=== PATIENT | male | born 1945 | race Caucasian/White ===

== ENCOUNTER → 2021-10-10 10:02 | Outpatient (BNVA) | payer MEDICARE, SELFPAY | PROVIDERS: PCP Neuromusculoskeletal Medicine & OMM; Referring Provider Neuromusculoskeletal Medicine & OMM; Visit Provider Student in an Organized Health Care Education/Training Program | DX: M17.11 Unilateral primary osteoarthritis, right knee (principal) | CPT/HCPCS: 99203 ==

== ENCOUNTER 2021-11-10 14:42 | Outpatient (CLI) | payer MEDICARE, SELFPAY ==
--- NOTE | 2021-11-10 14:00 | DI.RAD_ITS ---
Exam(s) XR STANDING ALIGNMENT EXAM: XR STANDING ALIGNMENT CLINICAL HISTORY: TKA planning. TECHNIQUE: 2D digital imaging was performed. Standing AP views were performed from the pelvis throu gh the ankles. COMPARISON: CR XR KNEE 3V RT from 07/29/2021 FINDINGS: BONES: No acute fracture is present. No bony destructive lesion is seen. Leg length discrepancy: Left iliac crest projects superior to the right. JOINTS: Knees: Left knee prosthesis. Narrowing of both medial and lateral femoral tibial joint spac es of the right knee. The ankle joints are unremarkable. There is a right hip prosthesis. There are moderate degenerative changes of the left hip.. SOFT TISSUE: Normal. IMPRESSION: Degenerative changes of the right knee and left hip.. Mild leg length discrepancy. DATA REPOSITORY: RADIATION DOSE DELIVERED:
== END 2021-11-10 14:43 | disposition home or self-care (01) ==
LOC: DIORS 14:42
PROVIDERS: PCP Neuromusculoskeletal Medicine & OMM; Referring Provider Neuromusculoskeletal Medicine & OMM; Visit Provider Physician Assistant
DX: M17.11 Unilateral primary osteoarthritis, right knee (principal); Z01.818 Encounter for other preprocedural examination
CPT/HCPCS: 77073

== ENCOUNTER 2021-11-24 02:49 | Outpatient (CLI) | payer MEDICARE, SELFPAY ==
[2021-11-24 14:22] LABS: HGB 15.2 g/dL (13.5-17.5); MCH 30.8 pg (27.0-33.0); MCHC 34.5 % (32.0-36.0); MCV 89 fL (80-95); MPV 8.9 fL (8.0-11.0); Platelet Count 219 10^3/uL (130-400); RBC 4.93 10^6/uL (4.36-5.78); RDW 12.4 % (11.8-14.1); RDW-SD 40.5 fL
[2021-11-24 15:19] LABS: BUN 26 mg/dL (7-18); CREATININE 1.1 mg/dL (0.70-1.30); Calcium 9.8 mg/dL (8.5-10.1); Chloride 103 mmol/L (98-107); Estimated GFR 69.57 (mL/min/1.73m2); Glucose 114 mg/dL (74-106); Sodium 139 mmol/L (136-145)
== END 2021-11-24 02:50 | disposition home or self-care (01) ==
LOC: LBO 02:49
PROVIDERS: PCP Neuromusculoskeletal Medicine & OMM; Visit Provider Student in an Organized Health Care Education/Training Program
DX: M25.561 Pain in right knee (principal); M17.11 Unilateral primary osteoarthritis, right knee; Z01.818 Encounter for other preprocedural examination; Z01.812 Encounter for preprocedural laboratory examination
CPT/HCPCS: 36415; 80048; 85027

== ENCOUNTER 2021-11-26 07:13 | Day surgery (SDC) | payer MEDICARE, SELFPAY ==
[2021-11-26] VITALS (12 sets, daily range): BP systolic 83–130; BP diastolic 40–81; PULSE 59–75; RESP 13–20; TEMP 36.2–37.2; O2SAT 94–98; BMI 25.8
--- NOTE | 2021-11-26 07:26 | ANES.PREOP_ITS ---
General Info Date of Service Date Performed: 11/26/21 Height: 5 ft 10 in Weight: 81.647 kg Body Mass Index (BMI): 25.8 Surgical Procedure: Operation Date: 11/26/21 09:25 Proposed Procedure Side Surgeon p Knee Total Arthroplasty Cemented CR Right Yvon Jimenez MD Meds Allergies and Home Medications Allergies Allergy/AdvReac Type Severity Reaction Status Date / Time acetaminophen [From Percocet] AdvReac Nausea Unverified 11/26/21 07:49 oxycodone [From Percocet] AdvReac Nausea Unverified 11/26/21 07:49 Home Medication Medication Instructions Recorded acetaminophen 500 mg capsule 1,000 mg PO Q8H PRN PRN #90 caps 11/26/21 aspirin 81 mg tablet,delayed 81 mg PO BID #60 tabs 11/26/21 release celecoxib 200 mg capsule (Celebrex) 200 mg PO BID #60 caps 11/26/21 dexamethasone 4 mg tablet 4 mg PO DAILY #2 tabs 11/26/21 (Decadron) gabapentin 300 mg capsule 300 mg PO QHS #14 caps 11/26/21 hydromorphone 2 mg tablet 2 mg PO Q6H PRN #10 tabs 11/26/21 pantoprazole 40 mg tablet,delayed 40 mg PO DAILY #30 tabs 11/26/21 release (Protonix) Current Visit Medications: Current Medications Generic Name Dose Route Start Last Admin Trade Name Freq PRN Reason Stop Dose Admin Acetaminophen 1,000 mg 11/26/21 06:00 Acetaminophen 500 Mg Tab PO 11/26/21 16:00 PREOP FLAKO Celecoxib 400 mg 11/26/21 06:00 Celecoxib 200 Mg Cap PO 11/26/21 16:00 PREOP FLAKO Gabapentin 300 mg 11/26/21 06:00 Gabapentin 300 Mg Cap PO 11/26/21 16:00 PREOP FLAKO Tranexamic Acid 1,000 mg/ 60 mls @ 360 mls/hr 11/26/21 06:00 Sodium Chloride IVPB 11/26/21 16:00 PREOP FLAKO Ringer's Solution 1,000 mls @ 80 mls/hr 11/26/21 06:00 IV 12/25/21 23:59 INFUSION FLAKO Cefazolin Sodium/Dextrose 2 gm in 50 mls @ 100 mls/hr 11/26/21 06:00 Ancef Duplex IVPB 12/25/21 23:59 PREOP FLAKO IV Miscellaneous Supplies 1 each 11/26/21 06:00 Iv Access IV 12/25/21 23:59 DIRECTED FLAKO Sodium Chloride 0 ml 11/26/21 06:00 Normal Saline Flush 10 Ml Syr IV 12/25/21 23:59 PRN PRN Sodium Chloride 0 ml 11/26/21 06:00 Normal Saline 10 Ml Vial IJ 12/25/21 23:59 DIRECTED PRN Sterile Water 0 ml 11/26/21 06:00 Water,Injection,Sterile 10 Ml Vial IJ 12/25/21 23:59 DIRECTED PRN PFSH Active Problems Active Problems: Problem Status Onset Code 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 states no residual, never hadto f.u with neurology Former smoker Hyperlipidemia Surgical History Surgical History History of colonoscopy 06/29/16 History of inguinal hernia repair [place] [facility] [facility] [place] History of total right hip replacement [facility] ~15 years ago Tobacco Smoking/Tobacco Use Status: Never Alcohol Alcohol Intake: current Alcohol intake frequency: holidays/special occasions only Substance Use Substance use: Occasionally Substance use type: marijuana Vital Signs and Lab Results Lab Results Blood Type / Crossmatch: No Data to Display Complete Blood Count: White Blood Count 8.80 10^3/uL (4.4-10.8) 11/24/21 14:16 Red Blood Count 4.93 10^6/uL (4.36-5.78) 11/24/21 14:16 Hemoglobin 15.2 g/dL (13.5-17.5) 11/24/21 14:16 Hematocrit 44.0 % (40.0-50.0) 11/24/21 14:16 Platelet Count 219 10^3/uL (130-400) 11/24/21 14:16 Complete Metabolic Panel: Sodium 139 mmol/L (136-145) 11/24/21 14:16 Potassium 4.0 mmol/L (3.5-5.1) 11/24/21 14:16 Chloride 103 mmol/L (98-107) 11/24/21 14:16 Carbon Dioxide 29.0 mmol/L (21.0-32.0) 11/24/21 14:16 BUN 26 mg/dL (7-18) H 11/24/21 14:16 Creatinine 1.1 mg/dL (0.70-1.30) 11/24/21 14:16 Est GFR (CKD-EPI 2020) 69.57 (mL/min/1.73m2) 11/24/21 14:16 Calcium 9.8 mg/dL (8.5-10.1) 11/24/21 14:16 Glucose 114 mg/dL (74-106) H 11/24/21 14:16 Liver Function Panel: No Data to Display Coagulation Panel: No Data to Display Cardiac Panel: No Data to Display Arterial Blood Gas: No Data to Display Venous Blood Gas: No Data to Display Pancreas Panel: No Data to Display Thyroid Panel: No Data to Display Infectious Disease: No Data to Display Blood Cultures: No Data to Display Toxicology Panel: No Data to Display Anesthesia Assessment and Plan Anesthesia History Personal History: No History of Anesthesia Complications Family History: No Family History of Anesthesia Complications Exercise Tolerance Exercise Tolerance: Metabolic Equivalents>4 Pertinent Negatives Pertinent Negatives: No Symptoms of GERD, No Major Cardiovascular Symptoms or Complaints, No Major Pulmonary Symptoms or Complaints and No History of CVA/TIA Cardiac & Pulmonary Exam Cardiac Exam: Normal S1/S2 Heart Sounds Pulmonary Exam: Clear Bilateral Breath Sounds Implantable Cardiac Device Does patient have a Pacemaker or an ICD?: No Airway Exam Known Difficult Airway: No Mallampati Class: 2 Mouth Opening: Normal (> 3cm) Thyromental Distance: Greater than 3 cm Neck Range of Motion: Full ROM Neck Circumference: Normal Teeth Condition: Generalized Poor Dentition ASA Classification ASA Score: ASA 3 Emergency Case?: No NPO Status NPO Status: NPO Clears >2 hours, Solids >8 hours Anesthesia Plan Resuscitation Status: Full Code Anesthesia Technique: Spinal Anesthesia Airway Planned: Natural Airway Pain Management: Surgeon and patient request nerve block (Right adductor canal) Monitors Used: Standard Monitors
--- NOTE | 2021-11-26 07:35 | PDOC.DSDIS_ITS ---
Discharge Plan Disposition Patient Disposition: HOME Condition: Good Discharge Details Reason For Visit: Right TKA Attending Provider: Yvon Jimenez Primary Care Provider: Tommie Kuhn [place] Meds and New Rx's Prescriptions: New celecoxib [Celebrex] 200 mg capsule 200 mg PO BID Qty: 60 0RF aspirin 81 mg tablet,delayed release (DR/EC) 81 mg PO BID Qty: 60 0RF pantoprazole [Protonix] 40 mg tablet,delayed release (DR/EC) 40 mg PO DAILY Qty: 30 0RF gabapentin 300 mg capsule 300 mg PO QHS Qty: 14 0RF acetaminophen 500 mg capsule 1,000 mg PO Q8H PRN PRNQty: 90 0RF dexamethasone [Decadron] 4 mg tablet 4 mg PO DAILY Qty: 2 0RF hydromorphone 2 mg tablet 2 mg PO Q6H PRNQty: 10 0RF Discharge Instructions Additional Instructions: Total Knee Discharge Instructions Activity: The most important activity is to walk and to work on gentle motion (both flexion and extension). You should try to take short walks a few times a day. It is important that when resting you work on keeping the knee straight. Avoid putting a pillow behind the knee as this will encourage flexion. Work on range of motion exercises as provided by Physical Therapy. - Start outpatient physical therapy within 2 weeks. - You should wear the ANKIT hose on both legs for 2 weeks. You may remove these at night. You may also use any compression sock in place of the ANKIT hose. - Utilize [employer] to review exercises, see videos on exercises and obtain basic information pertaining to your surgery and your recovery. Dressing: Remove the Daniel wrap by 2 days after your surgery and put on the ANKIT stocking given to you from the hospital. Keep the surgical dressing (underneath the DANIEL wrap) in place for at least one week. After the first week it may be removed and replaced with light gauze and tape or nothing. The wound and dressing may get wet after 3 days but avoid soaking the dressing or otherwise it will need to be changed. Many people prefer covering the dressing with cling wrap (saran wrap) to minimize it from getting soaked. If it gets wet, just pat dry. If it starts to peel off then it will need to be changed. Medications: - You should take Tylenol and anti-inflammatory Celebrex as your primary pain control medications. If the Celebrex is too expensive or not covered, please call the office for another alternative (Advil/Ibuprofen or Naproxen/Aleve) - You have been prescribed a stronger pain medication Oxycodone for breakthrough pain, take as needed as prescribed. - You have also been prescribed a stomach acid reduction agent Pantoprozole to help reduce stomach acid and reflux. - You have been prescribed Gabapentin to take at night for restlessness and nerve pain. - You will be taking Aspirin 81mg twice a day for DVT prevention unless instructed otherwise. - You have also been prescribed Decadron to take to control post-operative nausea and pain. You will start this tomorrow. - If you have constipation you should take Colace or Miralax (both [id number]). It takes most people 3-4 days to have a bowel movement. Follow-up: 2 weeks If you have any acute concerns or questions, please do not hesitate to contact the office at [phone]. You may contact Dr. Jimenez with any questions after hours through the hospital at [phone] or on his cell phone at [phone]. Referrals: Yvon Jimenez MD [ [facility] STAFF PHYSICIAN] - Equipment/Supplies: Walker Activity:: Activity as Tolerated Remove Dressings/Wound Care:: Do Not Remove Shower/Bathe:: 72 hours Diet:: As Tolerated Discharge Orders Discharge Orders: Discharge Order (Routine); Ordered 11/26/21 Ordered By: Maryse Chavez DS: Diagnosis Discharge Diagnosis (1) Degenerative joint disease of right knee: Status: Acute
[2021-11-26] MEDS: Celecoxib 200 MG CAP 400 MG PO (08:01)
[2021-11-26] MEDS: Acetaminophen 500 MG TAB 1000 MG PO (08:01)
[2021-11-26] MEDS: Gabapentin 300 MG CAP PO (08:01)
[2021-11-26] MEDS: Lactated Ringers 1,000 ML 80 ML IV (08:21)
--- NOTE | 2021-11-26 08:59 | W.ANESNERVE ---
Nerve Block Single Injection Procedure Date and Time Date Performed: 11/26/21 Procedure Start: 08:45 Location Where Procedure Performed Procedure Location: Day Surgery Unit Reason Performed: Postoperative Analgesia Requesting Provider: Yvon Jimenez Timeout Performed Timeout Performed: Yes Monitoring Used ECG, Blood Pressure and SpO2 Sterility Sterility: Hand Hygiene Sedation Given During Procedure Sedation Given (Indicate Dose Given): No Sedation given Patient Mental Status Patient Mental Status: Awake Nerve Block 1st Nerve Block: Laterality: Right Block Type: Adductor Canal Needle / Catheter Used: 100mm SonoPlex II Local Anesthetic Bolus (Indicate Dose Given): Lidocaine used for local infiltration of skin, Injected in 3-5ml increments after negative blood aspiration and Bupivacaine 0.25% Dose:: 15 ml Additives (Indicate Dose Given): Precedex Dose:: 80 mcg Ultrasound: Sterile probe cover and gel used Ultrasound Image Saved?: Yes Nerve Stimulator: Not Used Paresthesia: None Post Procedure Pain score (0-10): 0 Procedure Tolerated: No Complications and Patient tolerated well Procedure Outcome: Successful Performed By: Kings Kerr
[2021-11-26] MEDS: ceFAZolin 2 GM/50 ML BAG IVPB (09:10)
[2021-11-26] MEDS: ePHEDrine 25 MG/5 ML Syringe IVP (11:40)
--- NOTE | 2021-11-26 12:37 | W.ANESPOSTOP ---
Postoperative Evaluation Date, Time and Location Date Performed: 11/26/21 Time Performed: 11:45 Patient Location: PACU Vital Signs Most Recent Imported Vital Signs: Most Recent Vital Signs Temp Pulse Resp BP Pulse Ox 36.3 C L 68 16 98/63 L 95 11/26/21 12:06 11/26/21 12:06 11/26/21 12:06 11/26/21 12:06 11/26/21 12:06 Pain Score Most Recent Pain Score: Most Recent Pain Score Pain Level 0 11/26/21 12:06 Assessment Mental Status: Awake (Alert & Oriented to Patient Baseline) Airway and Respiratory Function: Patent airway with normal (patient baseline) respiratory exam Cardiovascular Function: Hemodynamically Stable Hydration Status: Adequately Hydrated Nausea & Vomiting: No Nausea or Vomiting Pain: Pt. Denies Any Pain Peripheral Nerve Block: Regional nerve block not resolved at time of post operative discharge Postoperative Comments:: Spinal wearing off appropriately. Patient doing well and denies questions.
--- NOTE | 2021-11-26 13:55 | PT.INIE ---
Date of service: 11/26/21 PT Notes Visit Reasons: Right TKA Physical Therapy Day Surgery Initial Evaluation Date: 11/26/2021 Referring Doctor: MARCE Carbone PT Orders: PT CONSULT: S/P Ortho Surgery Precautions: WBAT on R LE with AD. Patient Profile/Admitting Diagnosis: Patient is a 76-year-old male with degenerative joint disease of the R knee and is S/P R total knee arthroplasty on postoperative day 0. PMHX: Medical History?(Updated 10/10/21 @ 13:12 by Christiane Jain) Cardioembolic stroke CVA (cerebral vascular accident) Former smoker Hyperlipidemia Surgical History?(Updated 10/10/21 @ 13:12 by Christiane Jain) History of colonoscopy 06/29/16 History of inguinal hernia repair History of knee replacement [place] [facility] [place] ago History of total right hip replacement [facility] ~15 years ago Social History/Home Situation: Patient lives alone with in a private home with three steps to enter with B rails. Independent with all aspects of ADLs prior to surgery. Equipment Owned/DME: None Subjective: Agreeable to PT consult. Reports 2/10 pain in R knee. Objective: General Observation: Supine in bed. QUIN wrap to R LE. Cryocuff to R knee. Mental Status: A and O x 4 Pain: 2/10 in R knee and anterior thigh ROM: Right Lower Extremity: Hip flexion WFL. Hip abduction WFL. Knee flexion 20 degrees to 90 degrees. Kne extension -20 degrees. Ankle dorsiflexion WFL. Ankle plantarflexion WFL. Left Lower Extremity: Hip flexion WFL. Hip abduction WFL. Knee flexion WFL. Ankle dorsiflexion WFL. Ankle plantarflexion WFL. Strength: Right Lower Extremity: Hip flexors 4/5. Hip abductors 4/5. Knee flexors 3-/5. Knee extensors 3-/5. Ankle dorsiflexors 4-/5. Ankle plantarflexors 4-/5. Left Lower Extremity:Hip flexors 5/5. Hip abductors 5/5. Knee flexors 5/5. Knee extensors 5/5. Ankle dorsiflexors 5/5. Ankle plantarflexors 5/5. Sensation: Intact as to pain and light pressure in B LE Bed Mobility/Transfers: Supine to sit stand by assist Sit to stand contact guard assist Stand to sit stand by assist Bed to chair stand by assist Gait: 150 feet using FWW with step-to gait pattern with report of pain in the R knee and thigh. Reported lightheadedness that resolved later on with activity. Balance: Static Sitting: Normal Dynamic Sitting: Normal Static Standing: Fair Dynamic Standing: Fair Special Tests: Mobility Limitations Standardized Measure [facility] AM-PAC 6 clicks Basic Mobility Inpatient Short Form: Raw Score: 22 CMS Score: 21% deficit Informed Consent/Education: Patient instructed in purpose of PT consult. Packet containing TKA exercise protocol has been given to patient. Education and training on initial set of exercises that can be done at home have been completed with patient. Assessment: Patient requires the use of FWW for all mobility ADL performance to maximize independence and reduce fall risk. Patient presents with clinical signs and symptoms consistent with current/admitting diagnoses that have resulted to mobility limitations, gait instability, generalized weakness, and impairment of motor control as demonstrated by the following impairment level findings: 1. Decreased strength to R knee major muscle groups 2. Impaired standing balance 3. Limitation of joint range of motion in left knee Impairments are contributing to the following functional limitations: 1. Inability to safely ambulate without assistive device 2. Increase completion time for mobility ADL performance 3. Increased fall risk Patient is assessed as a 81195 moderate complexity based on the following: History: 76-year-old female with impairment level findings, functional limitations, and past medical history as indicated above Examination: Demonstrable impairment in strength, balance, and mobility level with underlying impairments and functional limitations as documented above Presentation: Evolving Decision Makin moderate complexity Goals: N/A. PT evaluation and 1-2 treatment sessions only for functional mobility training using recommended AD and for HEP instruction. Plan of Care/Treatment Plan: N/A. PT evaluation and 1-2 treatment session only for functional mobility training using recommended AD and for HEP instruction. DISCHARGE RECOMMENDATIONS: [] Home with no services [] [] Home with services [specify] [X] Home with outpatient PT. Home when medically cleared by orthopedic surgeon. Will benefit from outpatient PT services in order to maximize functional outcomes and facilitate independent community ambulation without an assistive device. [] SNF for continued rehabilitation [] [] [facility] [] [] SNF versus LTC based on ability to participate and progress [] TREATMENT CODE/TIME: 77189 x 20 minutes, 89932 x 14 minutes beginning at 13:55 PM. Thank you for the opportunity to participate in the care of this patient. Chela Lyons PT, DPT, CLT [facility] [place], [place]
--- NOTE | 2021-11-26 18:48 | W.PM.OP ---
Date of service: 11/26/21 Time of Service: 11:00 Operative Note Operative Note DATE OF PROCEDURE: 11/26/21 PRE-OP DIAGNOSIS: Right Knee Osteoarthritis POST-OP DIAGNOSIS: same PROCEDURE: Right Total Knee Replacement SURGEON: Yvon Jimenez INTERNIST MEDICAL DOCTOR MD: Maryse Chavez ANESTHESIA TYPE: Spinal Refer to Anesthesia Record ESTIMATED BLOOD LOSS: 150 PATHOLOGY: none sent COMPLICATIONS: None Patient was transported to: PACU Patient's condition: stable Implants: 1. Depuy Attune Cruciate Retaining Femoral Component, Size 7 2. Depuy Attune Rotating Platform Tibial Component, Size 6 3. Depuy Attune 7x7 CR,RP Poly 4. Depuy Attune Patellar Component, Size 38 Indications: I have seen Jacob in clinic for symptoms of knee arthritis, confirmed with radiographic findings. Jacob has exhausted nonoperative methods and was having significant limitations in daily function and desired better function and less pain. I discussed the technical details of a knee replacement. I explained the risks of the procedure to include, but not limited to, bleeding, infection, pain, stiffness, fracture, damage to nerves and vessels, damage to muscles and tendons, loosening, need for repeat procedure, blood clot and cardiopulmonary demise. Despite these risks, Jacob elected to proceed. Findings: There was significant signs of arthritis throughout the knee involving all 3 compartments. Procedure Description: Jacob was greeted in the preoperative holding area where the correct side was identified and marked. The consent was reviewed with the patient and signed. The history and physical was updated. All questions were answered. Preoperative mediacations were administered: Acetaminophen 1000mg, Celebrex 400mg, and Gabapentin 300mg. An adductor canal block was then administered by the anesthesia team in the PACU. Jacob was taken back to the operating room. A spinal anesthestic was then administered. The patient was placed into the supine position on the operating room table. A nonsterile tourniquet was placed high onto the leg but only used for cementing. Posts were placed for positioning during the procedure. All bony prominences were well padded. Prophylactic antibiotics in the form of Cefazolin were administered. 1g of Tranxemic Acid was given intravenously within 30 minutes of incision. The right leg was then prepped with Chloraprep and draped in a standard fashion with impervious stockinette and extremity drape. A second prep with Chloraprep was performed prior to placing Ioband. A timeout to confirm correct identity, side and site, procedure, allergies, anesthesia, and medical concerns was performed. With the knee in some flexion, a midline incision was made overlying the knee. Full thickness skin flaps were raised once the extensor mechanism was encountered. These were raised medially and laterally. Any bleeding was controlled with electrocautery. Once the extensor mechanism was fully exposed, a medial parapatellar arthrotomy was performed in a flexed position. All bleeding from the arthrotomy and the geniculate arteries was coagulated. A medial subperiosteal peel was performed with electrocautery to the midcoronal plane. The fat pad was removed while keeping the patellar tendon protected. The anterior distal femur synovium was removed for later visualization. The ACL and PCL were resected and the anterior horn of the lateral meniscus was transected. The knee was then flexed with the patella everted. Medial osteophytes were removed from the tibia. Using a step drill, and based on preoperative templating, the femoral canal was entered. This was done with a step drill without any difficulty. The intramedullary distal femoral cut guide was inserted, set to a 7 degree valgus cut and 9mm cut thickness. The distal femoral cut guide was then held in position and pinned. With the soft tissues protected, the distal cut was performed. This was passed over a few times to ensure a planar cut. I then turned attention to the tibia. The extramedullary guide was placed onto the leg. The distal aspect was slid medial to adjust for position of center of ankle and stay in line with shaft of the tibia. Approximately 3-5 degrees of posterior slope was kept in the proximal cutting guide. The center of the guide was aligned with the PCL. The stylus was used to assess cut thickness. The medial side, most involved side, was set for a 5mm cut,corresponding to 8mm laterally. This was then held in position and pinned into place with 2 additional pins and a cross pin for stability. The medial and lateral collateral ligaments were protected and the cut was performed. With this completed, it was assessed and noted to be of appropriate dimensions. The guide was removed. A spacer block was inserted and the knee was brought into extension. The 6mm spacer block provided full extension, without hyperextension and with stability of both the medial and lateral collateral ligaments was assessed. The pins from the femur and the tibia were then removed. The distal femur was then sized. The anterior stylus was placed onto the lateral ridge of the anterior femur. This indicated a size 7 femur. The external rotation of the guide was adjusted to 5 degrees to match the epicondylar axis, perpendicular to Teresa?s line. The 4-in-1 cutting guide was the placed. The posterior medial femur cut was evaluated and appeared of good thickness. The spacer block was inserted underneath the cutting guide and stability was confirmed in 90 degrees of flexion. An yaron wing was used to confirm appropriate position of the anterior cut to avoid notching. This cutting guide was ensured to be flush on the cut surface and then pinned into place with headed pins. While protecting the soft tissues, quad tendon, and collateral ligaments, the anterior and posterior cuts were performed with a saw. The central two pins were removed and the posterior and anterior chamfers were cut next. The notch-cutting guide was placed. This was pinned to lateralize the femoral component as much as possible while keeping it flush on the cut surface. This was then pinned into position. A reciprocating saw was used to make the small notch cut. A trial CR femoral component was then inserted, impacted down to the cut surfaces, and the lug holes were drilled. A provisional trial tibial component was placed and the knee was brought through range of motion. The polyethylene was trialed until there was good flexion and extension with excellent stability to the medial and lateral collaterals. The patella was tracking without thumbs. The tibial cut surface was fully exposed. The medial and lateral menisci were removed. The tibia was then sized as a 6. The tibia had been previously marked during trialing to correspond to the center of the tibial component to help with rotation. The trial was aligned to this min, approximately rotated to the medial 1/3rd of the tibial tubercle. The trial was pinned into place. The tibia was prepared with a reamer and a keel punch. The knee was then brought into extension and the patella was measured as 28mm. Using the patellar clamp and cut guide, this was resected to a flat surface with at least 13mm of thickness remaining. The size 38 patella fit the best. This was oriented and then clamped into position. The lugs were drilled. The trial components were removed. The final components, except for the polyethylene were opened on the back table. The periosteal and capsular tissues, especially posteriorly, around the knee were then systematically injected with a periarticular cocktail consisting of 246mg of Ropivacaine, 0.5mg of Epinephrine, 0.08mg of Clonidine, and 30mg of Ketorolac, diluted to 100cc.. The tourniquet was then inflated to 275mmHg. The knee was thoroughly irrigated with a pulse lavage and dried. On the back table, with the implants opened, the cement was mixed. 2 batches of medium viscosity cement were prepared with vacuum assistance. After the cement was ready it was placed on to the back side of the tibial component. A small amount was placed onto the posterior flange of the femur. Cement was manual pressurized and impregnated into the cut surface of the tibia. The tibial component was then inserted into the cut surface and impacted into position. Excess cement was removed and the component was reimpacted. Again, excess cement was removed and our attention was then turned to the femur. The femoral cut surface was once again dried and cement was manually impacted into the cut surface. The femoral component was lined with the lug holes and impacted. Excess cement was removed. It was ensured to be down against the cut surface. The trial polyethylene was then inserted and the leg was brought out into full extension for the duration of the cement curing process, approximately 18min. Cement was lastly manually impacted into the cut surface of the patella and the patellar button was clamped into position and held. During this process attention was turned to the gutters of the knee and for all interfaces for any excess cement. While the cement was hardening, the knee was irrigated with Surgiphor Betadine solution. It was allowed to sit in the knee for 3 minutes and then it was thoroughly irrigated with saline. After the cement had finally cured, approximately 18min, the clamp was removed from the patella and the knee was taken through range of motion. A size 7mm polyethylene component provided the best range of motion and stability with less than 2mm gapping with medial and lateral stress and full extension without significant hyperextension. The patella was tracking with a no-thumbs technique. The trial poly was removed and once again the knee was checked for any loose, excess, or errant cement. The poly component was then inserted into position after cleaning and drying the tibial tray. The capsule was then reapproximated with a No. 1 Vicryl at multiple locations. The capsule was finally closed with a No. 2 Stratafix, barbed suture. The tourniquet was then released and the arthrotomy appeared watertight without significant bleeding. The second dosing of 1g TXA was started. Deep tissues were then reapproximated with 0 Vicryl and 2-0 Vicryl. The skin was closed with a running 3-0 Monocryl in a subcuticular fashion. This was reinforced with skin glue. A Mepilex silver dressing was applied along with a [id number] QUIN wrap. A CryoCuff was applied. Jacob was transferred to the hospital bed without difficulty an suffering no apparent complication. Jacob has a good prognosis. Physical therapy will start today and without restrictions, weight-bearing as tolerated. Aspirin 81mg BID will be used for DVT prophylaxis.
== END 2021-11-26 16:17 | disposition home or self-care (01) ==
PROVIDERS: PCP Neuromusculoskeletal Medicine & OMM; Visit Provider Student in an Organized Health Care Education/Training Program
PROC: (CPT 27447; principal; 2021-11-26 09:15)
DX: M17.11 Unilateral primary osteoarthritis, right knee (principal); Z86.73 Personal history of transient ischemic attack (TIA), and cerebral infarction without residual deficits; E78.5 Hyperlipidemia, unspecified; Z87.891 Personal history of nicotine dependence
CPT/HCPCS: 27447; C1776; 76942; 97162; 97530; J0690; J1100; J2405

== ENCOUNTER 2021-12-11 10:09 | Outpatient (CLI) | payer MEDICARE, SELFPAY ==
--- NOTE | 2021-12-11 09:45 | DI.RAD_ITS ---
Exam(s) XR KNEE RT 1V XR STANDING ALIGNMENT EXAM: XR STANDING ALIGNMENT and XR knee RT 1 V CLINICAL HISTORY: 1ST POST OP R TKA. TECHNIQUE: 2D digital imaging was performed. Five images were obtained. COMPARISON: CR XR KNEE 3V RT from 07/29/2021 CR XR STANDING ALIGNMENT from 11/10/2021 FINDINGS: BONES: The patient has a right total hip replacement. Degenerative changes are seen in the left hip with joint space narrowing and marginal osteophytes. The patient has a prior left total knee replace ment which is unremarkable. There has been interval placement of a left total knee arthroplasty. Th e orthopedic hardware appears in good position. No findings to suggest loosening. The ankles are we ll maintained.There is no significant leg length discrepancy. SOFT TISSUE: Atherosclerosis is present. There is soft tissue swelling around the right knee. IMPRESSION: Status post right TKA. DATA REPOSITORY: RADIATION DOSE DELIVERED:
== END 2021-12-11 10:10 | disposition home or self-care (01) ==
LOC: DIORS 10:10
PROVIDERS: PCP Neuromusculoskeletal Medicine & OMM; Referring Provider Neuromusculoskeletal Medicine & OMM; Visit Provider Student in an Organized Health Care Education/Training Program
DX: Z96.651 Presence of right artificial knee joint (principal); Z47.1 Aftercare following joint replacement surgery
CPT/HCPCS: 73560; 77073

== ENCOUNTER → 2022-02-02 09:07 | Outpatient (BNVA) | payer MEDICARE, SELFPAY | PROVIDERS: PCP Neuromusculoskeletal Medicine & OMM; Referring Provider Neuromusculoskeletal Medicine & OMM; Visit Provider Student in an Organized Health Care Education/Training Program | DX: Z47.1 Aftercare following joint replacement surgery (principal); Z96.651 Presence of right artificial knee joint ==

== ENCOUNTER → 2022-03-09 10:49 | Outpatient (BNVA) | payer MEDICARE, SELFPAY | PROVIDERS: PCP Neuromusculoskeletal Medicine & OMM; Referring Provider Neuromusculoskeletal Medicine & OMM; Visit Provider Student in an Organized Health Care Education/Training Program | DX: Z47.1 Aftercare following joint replacement surgery (principal); M79.651 Pain in right thigh; Z96.651 Presence of right artificial knee joint ==

== ENCOUNTER → 2022-05-11 11:11 | Outpatient (BNVA) | payer MEDICARE, SELFPAY | PROVIDERS: PCP Neuromusculoskeletal Medicine & OMM; Referring Provider Neuromusculoskeletal Medicine & OMM; Visit Provider Student in an Organized Health Care Education/Training Program | DX: Z47.1 Aftercare following joint replacement surgery (principal); Z96.651 Presence of right artificial knee joint | CPT/HCPCS: 99213 ==

== ENCOUNTER 2022-11-30 12:55 | Outpatient (CLI) | payer MEDICARE, SELFPAY ==
--- NOTE | 2022-11-30 10:45 | DI.RAD_ITS ---
Exam(s) XR KNEE RT 2V AP,LAT EXAM: XR KNEE RT 2V AP,LAT CLINICAL HISTORY: annual f/u R TKA. TECHNIQUE: 2D digital imaging was performed. Two images were obtained. AP and lateral views were ob tained. COMPARISON: CR XR STANDING ALIGNMENT from 12/11/2021 CR XR KNEE RT 1V from 12/11/2021 FINDINGS: BONES: There are stable post operative changes of a right total knee replacement present. No fractur e or dislocation. JOINTS: The orthopedic hardware is in good position. No evidence of hardware loosening. SOFT TISSUE: Atherosclerosis is present. IMPRESSION: Stable postoperative changes. DATA REPOSITORY: RADIATION DOSE DELIVERED:
== END 2022-11-30 12:56 | disposition home or self-care (01) ==
LOC: DIORS 12:55
PROVIDERS: PCP Neuromusculoskeletal Medicine & OMM; Visit Provider Student in an Organized Health Care Education/Training Program
DX: Z96.651 Presence of right artificial knee joint (principal); Z47.1 Aftercare following joint replacement surgery
CPT/HCPCS: 99213; 73560

== ENCOUNTER → 2023-07-08 14:36 | Outpatient (BNVA) | payer MEDICARE, SELFPAY | PROVIDERS: PCP Neuromusculoskeletal Medicine & OMM; Referring Provider Neuromusculoskeletal Medicine & OMM; Visit Provider Student in an Organized Health Care Education/Training Program | DX: Z47.1 Aftercare following joint replacement surgery (principal); Z96.651 Presence of right artificial knee joint | CPT/HCPCS: 99213 ==